=== PATIENT | male | born 1960 | race Caucasian/White ===

== ENCOUNTER 2018-11-06 06:54 | Day surgery (SDC) | payer OTHER ==
[2018-10-29 12:26] VITALS: BMI 27.6
[2018-11-06] MEDS ORDERED: ceFAZolin SODIUM 1 GM VIAL ONE (07:17)
[2018-11-06] MEDS ORDERED: THROMBIN (RECOMBINANT) 5,000 UNIT VIAL TP ONE (07:18)
[2018-11-06] MEDS ORDERED: oxyCODONE HCL 10 MG SUSTAINED ACTING TABLET PO ONE (07:48)
[2018-11-06] MEDS ORDERED: TRANEXAMIC ACID 1000 MG/10 ML VIAL IVPUSH ONE (07:48)
[2018-11-06] MEDS ORDERED: GABAPENTIN 300 MG CAPSULE (FP) PO ONE (07:48)
[2018-11-06] MEDS ORDERED: CEFAZOLIN 2 GM in DEXTROSE 5%-WATER - 50 ML IVPB ONE (07:48)
[2018-11-06] MEDS ORDERED: CELECOXIB 200 MG CAPSULE PO ONE (07:48)
--- NOTE | 2018-11-06 08:01 | HP ---
Satellite [facility] - Chief Complaint Chief Complaint: right knee pain - Past Medical History Allergies/Adverse Reactions: Allergies Allergy/AdvReac Type Severity Reaction Status Date / Time shellfish derived Allergy Severe Difficulty Verified 10/29/18 12:15 Breathing Penicillins Allergy Unknown Verified 10/29/18 12:15 - Current Medications Current Medications: Home Medications Medication Instructions Recorded Atorvastatin Ca [Lipitor] 40 mg PO HS 10/29/18 Biotin 2,500 mcg PO DAILY 10/29/18 Multivitamin [One-Daily 1 each PO DAILY 10/29/18 Multi-Vitamin] Satellite Physical Exam - Physical Examination General Appearance: Well Nourished, Well Developed, Alert & Oriented x3 ENT: Clear Lung: Normal air movement Heart: Regular rate & rhythm Extremities: Other (right knee- + swelling, + ttp medially, decr rom, nvi xrays show grade 4 medial djd) Neurological: Intact, Alert, Oriented Satellite Impression/Plan - Impression/Plan Impression: right knee medial djd Operative Procedure: right medial jaime ukr Date to be Performed: 11/06/18
[2018-11-06] MEDS ORDERED: GELATIN, ABSORBABLE 12-7MM EACH SPONGE TP ONE (08:22)
[2018-11-06] MEDS ORDERED: ROPIVICAINE 0.2%/MORPH PF/KETOROLAC - 51ML DISP.SYRINGE IA ONE (08:23)
[2018-11-06] MEDS ORDERED: BUPIVACAINE HCL/PF (5 MG/ML) 30 ML VIAL IJ ONE (09:30)
[2018-11-06] MEDS ORDERED: SODIUM CHLORIDE 0.9% P/F 10 ML VIAL IJ ONE (09:30)
[2018-11-06] MEDS ORDERED: MIDAZOLAM HCL 2 MG/2 ML SINGLE DOSE VIAL ONE ×2 (09:30→10:06)
[2018-11-06] MEDS ORDERED: PROPOFOL 20 ML ONE ×3 (10:06)
[2018-11-06] MEDS ORDERED: SUCCINYLCHOLINE CHLORIDE 200 MG/10 ML VIAL ONE (10:06)
[2018-11-06 11:02] VITALS: TEMP 97.7
--- NOTE | 2018-11-06 11:11 | OP ---
DATE OF OPERATION: 11/06/2018 PREOPERATIVE DIAGNOSIS: Degenerative joint disease, right knee. POSTOPERATIVE DIAGNOSIS: Degenerative joint disease, right knee. PROCEDURE: Attempted right unicompartmental knee replacement. SURGICAL ATTENDING: Kierra De Dios MD INSTANTIZER OPERATOR: BAILEE Freitas ANESTHESIA: Regional and spinal. DESCRIPTION OF OPERATIVE PROCEDURE: Patient was taken to the operating room on November 06, 2018. Regional and spinal anesthesia was performed by the anesthesiologist. IV Kefzol was administered prophylactically prior to the case. We were about to begin prepping the patient on the operating table when a power issue developed with the ALEJANDRINA robot with llanes emanating from the power cord on the back part of the robot. The robot lost power and was not able to continue to perform the case. We elected at this time to abort the case despite the patient already receiving anesthesia due to the case of the robot not functioning, and it was not a safe procedure. We elected to abort the case and to bring back the patient at a later date when the robot would be functioning appropriately. Patient was awakened from his sedation, transferred to the recovery in stable condition. KIERRA DE DIOS M.D. JASS/[id number]
[2018-11-06 11:22] VITALS: BP 120/76; PULSE 66
== END 2018-11-06 18:30 | disposition home or self-care (01) ==
LOC: FASUSAT 06:54 → FASU 06:54 → FM/S 07:48 → FASUSAT 07:48
PROVIDERS: ATTEND Orthopaedic Surgery
PROC: 0SRC0LZ Replacement of Right Knee Joint with Medial Unicondylar Synthetic Substitute, Open Approach (ICD-10-PCS; principal; 2018-11-06 09:30)
DX: M17.11 Unilateral primary osteoarthritis, right knee (principal); Z53.8 Procedure and treatment not carried out for other reasons
CPT/HCPCS: 94760

== ENCOUNTER 2018-11-13 07:58 | Day surgery (SDC) | payer OTHER ==
[2018-11-06 16:44] VITALS: BMI 27.6
[~2018-11-13 07:58] MED LIST: CEFAZOLIN 2 GM in DEXTROSE 5%-WATER - 50 ML IVPB ONE; TRANEXAMIC ACID 1000 MG/10 ML VIAL IVPUSH ONE
[2018-11-13] MEDS: GABAPENTIN 300 MG CAPSULE (FP) PO ONE ×2 (08:19→20:14)
[2018-11-13] MEDS: CELECOXIB 200 MG CAPSULE PO ONE ×2 (08:19→20:14)
[2018-11-13] MEDS: oxyCODONE HCL 10 MG SUSTAINED ACTING TABLET PO ONE ×2 (08:19→20:14)
[2018-11-13] MEDS ORDERED: ceFAZolin SODIUM 1 GM VIAL ONE ×2 (08:29→09:46)
[2018-11-13] MEDS ORDERED: GELATIN, ABSORBABLE 12-7MM EACH SPONGE TP ONE (08:29)
[2018-11-13] MEDS ORDERED: THROMBIN (RECOMBINANT) 5,000 UNIT VIAL TP ONE (08:29)
[2018-11-13] MEDS ORDERED: MIDAZOLAM HCL 2 MG/2 ML SINGLE DOSE VIAL ONE (09:27)
[2018-11-13] MEDS ORDERED: SODIUM CHLORIDE 0.9% P/F 10 ML VIAL IJ ONE (09:28)
[2018-11-13] MEDS ORDERED: BUPIVACAINE HCL/PF (5 MG/ML) 30 ML VIAL IJ ONE (09:28)
[2018-11-13] MEDS ORDERED: ROPIVICAINE 0.2%/MORPH PF/KETOROLAC - 51ML DISP.SYRINGE IA ONE (09:31)
[2018-11-13] MEDS ORDERED: TRANEXAMIC ACID 1000 MG/10 ML VIAL ONE (09:53)
[2018-11-13] MEDS ORDERED: PROPOFOL 20 ML ONE ×3 (10:06→10:50)
[2018-11-13] MEDS ORDERED: ONDANSETRON 4 MG/2 ML VIAL IVPUSH PRN ×2 (10:59→11:33)
[2018-11-13] MEDS ORDERED: oxyCODONE HCL 5 MG TABLET PO PRN ×2 (10:59)
[2018-11-13] MEDS ORDERED: PROMETHAZINE HCL 25 MG/1 ML VIAL IVPUSH PRN (10:59)
--- NOTE | 2018-11-13 11:31 | HP ---
Satellite [facility] - Chief Complaint Chief Complaint: right knee pain - Past Medical History Allergies/Adverse Reactions: Allergies Allergy/AdvReac Type Severity Reaction Status Date / Time shellfish derived Allergy Severe Difficulty Verified 11/13/18 08:20 Breathing Penicillins Allergy Unknown Verified 11/13/18 08:20 - Current Medications Current Medications: Home Medications Medication Instructions Recorded Atorvastatin Ca [Lipitor] 40 mg PO HS 10/29/18 Biotin 2,500 mcg PO DAILY 10/29/18 Multivitamin [One-Daily 1 each PO DAILY 10/29/18 Multi-Vitamin] Satellite Physical Exam - Physical Examination Vital Signs: Vital Signs Period Temp Pulse Resp BP Sys/Ruff Pulse Ox Last 24 Hr 98.0 F 60 16 132/74 100 General Appearance: Well Nourished, Well Developed, Alert & Oriented x3 ENT: Clear Lung: Normal air movement Heart: Regular rate & rhythm Extremities: Other (right knee- + swelling, + ttp medially, decr rom, nvi xrays show grade 4 medial djd) Neurological: Intact, Alert, Oriented Satellite Impression/Plan - Impression/Plan Impression: right knee medial djd Operative Procedure: right medial jaime ukr Date to be Performed: 11/13/18
--- NOTE | 2018-11-13 11:32 | OP ---
Operative Note - Note: Operative Date: 11/13/18 ([facility]) Pre-Operative Diagnosis: right knee medial djd Operation: right medial jaime ukr Post-Operative Diagnosis: Same as Pre-op Surgeon: Tip De Dios Brand Marketing Coordinator: Jim Cox Anesthesiologist/OYSTER WASHER: Brenda Mohamud Anesthesia: Spinal, Local Specimens Removed: bone fragments Estimated Blood Loss (mls): 100 Operative Report Dictated: Yes
[2018-11-13] MEDS ORDERED: MAGNESIUM HYDROX 2400MG/30ML ORAL SUSPENSION 30 ML CUP PO PRN (11:33)
[2018-11-13] MEDS ORDERED: MAG HYDROX/AL HYDROX/SIMETH 30 ML UNIT-DOSE CUP PO PRN (11:33)
[2018-11-13] MEDS ORDERED: LACTATED RINGERS SOLUTION 1,000 ML IV SCH (11:45)
[2018-11-13] MEDS ORDERED: ACETAMINOPHEN 325 MG TABLET (FP) ONE (11:57)
[2018-11-13] MEDS ORDERED: ACETAMINOPHEN 325 MG TABLET (FP) PO ONE (12:00)
[2018-11-13] MEDS: ACETAMINOPHEN 325 MG TABLET (FP) PO SCH ×3 (17:33→23:23)
--- NOTE | 2018-11-13 17:44 | SPEC ---
DATE OF OPERATION: 11/13/2018 PREOPERATIVE DIAGNOSIS: Degenerative joint disease, right knee. POSTOPERATIVE DIAGNOSIS: Degenerative joint disease, right knee. PROCEDURE: Right medial unicompartmental knee replacement with robotic-assisted navigation (MAKOplasty) and patelloplasty. SURGICAL ATTENDING: Tip De Dios MD HEEL BUILDER: BAILEE Freitas ANESTHESIA: Regional and spinal. CLOSURE: Medial ALEJANDRINA components with a 6 femur, 6 tibia, and an 8 polyethylene; No. 1 Vicryl, fascia; 0 and 2-0 subcutaneous; 3-0 Monocryl subcuticular with skin glue for skin; 4-0 undyed Vicryl for pin sites. ESTIMATED BLOOD LOSS: Less than 100 mL. COMPLICATIONS: None. CONDITION: To recovery in stable condition. DESCRIPTION OF OPERATIVE PROCEDURE: Patient was taken to the operating room on November 13, 2018. Spinal and regional anesthesia was administered by the anesthesiologist. IV Kefzol and TXA were administered prophylactically prior to the case. A well-padded pneumatic tourniquet was placed on the right proximal thigh. The right lower extremity was prepped and draped in the usual sterile fashion. A 6- to 8-cm longitudinal incision over the medial side of the patella from mid patella to the tibial tubercle was incised and was deepened using Bovie cautery. An arthrotomy was then made just medial to the patellar tendon and the patella. Subperiosteal dissection was done on the anteromedial proximal tibia all the way back to the MCL. Partial fat pad excision was performed, exposing the medial compartment. Checkpoint was malleable at both the femur and the tibia. Using 2 stab incisions in the femur 1 handbreadth above the patella on the femur and 2 stab incisions 1 handbreadth below the tibial tubercle on the tibia, 2 threaded pins were drilled in parallel fashion from anterior to posterior, going through the proximal cortex and engaging the 2nd but not through the 2nd cortex. To these threaded pins were fastened navigation rays, 1 on the femur and 1 on the tibia. The knee was then registered with the navigation device with the center of the rotation of the hip, medial and lateral malleoli, and multiple points both on the femur and on the tibia. Excellent registration of less than 0.5 mm was obtained on both to ensure adequate registration. The navigation device ensured us to "pop the bubbles" both on the femur and the tibia and that was performed and passed registration. The knee was then thoroughly inspected to remove all osteophytes both on the femur and the tibia. Also, osteophytes on the trochlea and on the surface of the patella were removed as well. The knee was then stressed with valgus stress at 0, 30, 60, 90, and 120 degrees of flexion. This propagated a looseness/tightness graft. The virtual positions of the components were then optimized to ensure an excellent graft. The tracking also was optimized by manipulating the virtual position to ensure that the femoral component articulated with the central portion of the tibial component. The robot was then brought into the field and was registered. The robot was used to bur the bone on both the femur and the tibia as to the specifications of the components. The trial components were then applied on both the femur and the tibia with an appropriate polyethylene insert. The knee was taken through a range of motion and found to have full extension, full flexion, with excellent stability. Stressing the graft revealed an excellent looseness/tightness graft with the trial components in place. The trial components were removed. The knee was thoroughly irrigated with a copious amount of antibiotic irrigation. The real components were then cemented in using modern generation cement techniques with antibiotic cement and pressurization. After the cement was hardened, the knee was thoroughly inspected to remove out all excess cement. The real polyethylene insert was then clipped into place. Range of motion and stability were again assessed to be as they were with the trials. At this time, the pins and the checkpoints were removed. The knee was again thoroughly irrigated. The arthrotomy was closed with No. 1 Vicryl, 0 and 2-0 subcutaneous, and 3-0 Monocryl subcuticular with skin glue for the skin, 4-0 undyed Vicryl for the pin sites. Sterile pressure dressing was placed over the knee. Patient awakened from anesthesia and transferred to recovery in stable condition. No complications. Estimated blood loss negligible. X-rays postoperatively revealed excellent position of the components. Hua AHUMADA/[id number]
[2018-11-13] MEDS ORDERED: CEFAZOLIN 2 GM in DEXTROSE 5%-WATER - 50 ML IVPB SCH (18:00)
[2018-11-13] MEDS: oxyCODONE HCL 10 MG SUSTAINED ACTING TABLET PO SCH (21:21)
[2018-11-13] MEDS: SENNOSIDES/DOCUSATE COMBO (SENNA PLUS) TABLET (UD) PO SCH (21:22)
[2018-11-13] MEDS ORDERED: ATORVASTATIN CA 40 MG TABLET (FP) PO SCH (22:00)
[2018-11-14] MEDS ORDERED: CEFAZOLIN 2 GM/D5W 2 GM/50 ML ML IVPB ONE (02:00)
[2018-11-14 04:15] VITALS: PULSE 67
[2018-11-14 05:48] VITALS: BP 128/69; TEMP 98
[2018-11-14] MEDS: ACETAMINOPHEN 325 MG TABLET (FP) PO SCH ×2 (06:59→12:40)
[2018-11-14] MEDS ORDERED: ASPIRIN 325 MG TABLET PO SCH (08:00)
[2018-11-14] MEDS: oxyCODONE HCL 10 MG SUSTAINED ACTING TABLET PO SCH (09:12)
[2018-11-14] MEDS: SENNOSIDES/DOCUSATE COMBO (SENNA PLUS) TABLET (UD) PO SCH (09:12)
--- NOTE | 2018-11-14 09:21 | PN ---
Progress Note (short form) - Note Progress Note: Ortho Pt seen and examined s/p right medial jaime ukr pod #1 Selected Entries 11/14/18 05:46 Temperature 98.0 F Pulse Rate 67 Respiratory 18 Rate Blood Pressure 128/69 dressing c/d/i, calf soft, nt rom 0-90, nvi a/p PT dvt ppx pain control d/c home today f/u in 1 week
--- NOTE | 2018-11-14 09:23 | DS ---
Physical Examination Vital Signs: Vital Signs Temperature 98.0 F 11/14/18 05:46 Pulse Rate 67 11/14/18 05:46 Respiratory Rate 18 11/14/18 05:46 Blood Pressure 128/69 11/14/18 05:46 O2 Sat by Pulse Oximetry (%) 98 11/14/18 05:46 Discharge Summary Reason For Visit: OSTEOARTHRITIS Procedures: Principal: s/p right medial jaime ukr Hospital Course: admitted for elective right medial jaime ukr, uneventful post-op, stable for d/c Condition: Good - Instructions Diet, Activity, Other Instructions: Post-op Instructions-Partial Knee Replacement Call the office for a follow-up appointment in 1 week - [phone] Aspirin 325mg daily for 6 weeks. Pain medication was sent into your pharmacy. Apply Graduated Compression Stockings (TEDs) to both lower extremities- remove daily for hygiene ONLY Apply Sequential Compression Device (SCDs) to both Lower extremities remove for PT and hygiene ONLY Apply cold packs to affected area for 15 minutes every 2 hours. Physical Therapist will come to your home for the first 5 days. You will be set up with outpatient PT at your first post-operative visit. Patient may ambulate as tolerated-encourage self care (at least every 2-3 hours while awake) with walker or cane Maintain Aquacel (waterproof) dressing to operative wound (will be removed by surgeon at first office visit) Shower with Aquacel dressing in place-if Aquacel integrity compromised, remove and apply dry sterile dressing and notify Orthopedist. DO NOT SHOWER unless Orthopedists approves without Aquacel dressing CONTACT THE OFFICE FOR ANY CHANGE IN YOUR CONDITION (for example-fever greater than 102 degrees, excessive bleeding from operative site, purulent drainage, severe swelling or pain) GO TO THE EMERGENCY ROOM IF THERE IS A MEDICAL EMERGENCY Knee Precautions: * Keep a rolled towel under affected heel while in bed or chair (to keep knee in extension) * Keep affected leg elevated except during mealtimes * DO NOT PLACE PILLOW UNDER AFFECTED KNEE * If you have any questions, please do not hesitate to call the office - [phone]. Referrals: Tip De Dios MD [Staff Physician] - Disposition: VNS/HOME HEALTH CARE - Home Medications Comprehensive Discharge Medication List: Ambulatory Orders Atorvastatin Ca [Lipitor] 40 mg PO HS 10/29/18 Biotin 2,500 mcg PO DAILY 10/29/18 Multivitamin [One-Daily Multi-Vitamin] 1 each PO DAILY 10/29/18 Oxycodone HCl/Acetaminophen [Percocet 5-325 mg Tablet -] 1 - 2 tab PO Q6H #50 tab MDD 8 11/13/18
[2018-11-14] MEDS ORDERED: MULTIVITAMINS (DAILY MVI) TABLET (FP) PO SCH ×2 (10:00)
[2018-11-14] MEDS ORDERED: PANTOPRAZOLE 40 MG TABLET (FP) PO SCH (10:00)
[2018-11-14] MEDS ORDERED: BIOTIN 2500 MCG PO SCH (10:00)
== END 2018-11-14 12:59 | disposition home health service (06) ==
LOC: FM/S 07:58 → FASUSAT 07:58
PROVIDERS: ATTEND Orthopaedic Surgery
PROC: 8E0YXBZ Computer Assisted Procedure of Lower Extremity (ICD-10-PCS; 2018-11-13)
PROC: 8E0Y0CZ Robotic Assisted Procedure of Lower Extremity, Open Approach (ICD-10-PCS; 2018-11-13)
PROC: 0SRC0L9 Replacement of Right Knee Joint with Medial Unicondylar Synthetic Substitute, Cemented, Open Approach (ICD-10-PCS; principal; 2018-11-13 10:10)
DX: M17.11 Unilateral primary osteoarthritis, right knee (principal)
CPT/HCPCS: 20985; 27446; C1776; S2900; 73560-TC-RT-FY; 94760; 97116-GP; 97162-GP

== ENCOUNTER 2020-10-07 04:45 | Day surgery (SDC) | payer OTHER ==
[2020-09-23 15:31] VITALS: BMI 27.1
[2020-10-07] MEDS ORDERED: KETOROLAC TROMETHAMINE 30 MG/1 ML VIAL ONE (09:58)
[2020-10-07] MEDS ORDERED: LIDOCAINE HCL/PF 2% SDV 5ML VIAL ONE (09:58)
[2020-10-07] MEDS ORDERED: MIDAZOLAM HCL 2 MG/2 ML SINGLE DOSE VIAL ONE (09:58)
[2020-10-07] MEDS ORDERED: PROPOFOL 20 ML ONE (09:58)
[2020-10-07] MEDS ORDERED: DEXAMETHASONE SOD PHOSPHATE 4 MG/1 ML VIAL ONE (09:58)
[2020-10-07] MEDS ORDERED: SEVOFLURANE 250 ML BTL ONE ×2 (10:01→11:34)
[2020-10-07] MEDS ORDERED: LIDOCAINE HCL 1% EPINEPHRINE 1:200,000 30 ML VIAL (PF) ONE (10:15)
[2020-10-07] MEDS ORDERED: ceFAZolin SODIUM 1 GM VIAL IVPB ONE (10:40)
[2020-10-07] MEDS ORDERED: BUPIVACAINE HCL/PF 0.5% (5 MG/ML) 30 ML VIAL IJ ONE (10:53)
[2020-10-07] MEDS ORDERED: LIDOCAINE 1%/EPI 1:100000 (20 ML MULTI DOSE VIAL) PNB ONE (10:53)
[2020-10-07] MEDS ORDERED: ONDANSETRON 4 MG/2 ML VIAL IVPUSH PRN (11:06)
[2020-10-07] MEDS ORDERED: oxyCODONE HCL 5 MG TABLET PO PRN (11:06)
[2020-10-07] MEDS ORDERED: LACTATED RINGERS SOLUTION 1,000 ML IV SCH (11:15)
[2020-10-07 15:29] VITALS: BP 129/72; PULSE 69; TEMP 98.2
== END 2020-10-07 14:00 | disposition home or self-care (01) ==
LOC: JASU-SURG 04:45
PROVIDERS: ATTEND Orthopaedic Surgery
PROC: 0SCC4ZZ Extirpation of Matter from Right Knee Joint, Percutaneous Endoscopic Approach (ICD-10-PCS; 2020-10-07)
PROC: 0SBC4ZZ Excision of Right Knee Joint, Percutaneous Endoscopic Approach (ICD-10-PCS; principal; 2020-10-07 11:00)
DX: M23.91 Unspecified internal derangement of right knee (principal); M23.41 Loose body in knee, right knee
CPT/HCPCS: 94760